=== PATIENT | male | born 1990 | race Caucasian/White ===

== ENCOUNTER 2017-02-15 11:46 | Emergency (ER) | payer SELFPAY ==
[~2017-02-15] VITALS: Ht 177.8 cm; Wt 67.6 kg
[2017-02-15 13:09] LABS: Basophils # (auto) 0 uL; CONDITION Y; Eosinophils # (auto) 0.1 uL; Eosinophils % (auto) 1.7 % (0.0-7.0); Hematocrit 41.6 % (41.0-53.0); Hemoglobin 14.3 g/dL (13.5-17.5); Lymphocytes # (auto) 2.5 uL; Lymphocytes % (auto) 28.5 % (10.0-50.0); Mean Corpuscular Hemoglobin 29.6 pg (28.0-32.0); Mean Corpuscular Hgb Conc. 34.3 g/dL (32.0-36.0); Mean Corpuscular Volume 86.5 fL (80.0-100.0); Mean Platelet Volume 7.7 fL (7.4-10.4); Monocytes % (auto) 11.5 % (0.0-12.0); Neutrophils % (auto) 58.3 % (37.0-80.0); Platelet Count (auto) 309 10^3/uL (140-450); Red Cell Distribution Width 12.9 % (11.6-16.0); White Blood Cell 8.7 10^3/uL (4.4-10.8)
[2017-02-15 13:40] LABS: Albumin 4.1 g/dL (3.4-5.0); BUN/Creatinine Ratio 16.1; Bilirubin, Total 1.5 mg/dL (0.2-1.0); Calcium 9.2 mg/dL (8.5-10.1); Potassium 3.7 mmol/L (3.5-5.1); Total Protein 8.5 g/dL (6.4-8.2)
[2017-02-15 14:57] VITALS: BP 123/75
== END 2017-02-15 15:00 | disposition home or self-care (01) ==
LOC: ER 11:46
DX: L03.114 Cellulitis of left upper limb (principal); F17.210 Nicotine dependence, cigarettes, uncomplicated; F12.10 Cannabis abuse, uncomplicated; F11.10 Opioid abuse, uncomplicated
CPT/HCPCS: 36415; 80053; 85025; 87040

== ENCOUNTER 2020-03-10 19:47 | Emergency (ER) | payer OTHER ==
[~2020-03-10] VITALS: Ht 177.8 cm; Wt 70.3 kg
[2020-03-10 22:32] LABS: Urine Bacteria MANY /hpf (None Seen); Urine Blood Negative /uL (Negative); Urine Mucus MODERATE (None Seen); Urine Specific Gravity 1.029 (1.001-1.035); Urine WBC 44 /hpf (0 - 3)
[2020-03-10 22:44] LABS: Alcohol, Urine < 3.0 mg/dL (0-10); Amphetamine Screen, Urine POSITIVE (NEGATIVE); Barbiturate Scree,Urine NEGATIVE (NEGATIVE); Benzodiazephine Screen, Urine NEGATIVE (NEGATIVE); Cannabinoid Screen, Urine NEGATIVE (NEGATIVE); Cocaine Screen, Urine NEGATIVE (NEGATIVE); Opiate Scree,Urine POSITIVE (NEGATIVE); Phencyclidine Screen, Urine POSITIVE (NEGATIVE)
[2020-03-10 23:17] LABS: Basophils # (auto) 0 10 ^3/uL (0-0.2); Basophils % (auto) 0.6 % (0.0-2.0); Eosinophils # (auto) 0.2 10 ^3/uL (0-0.8); Eosinophils % (auto) 2.4 % (0.0-7.0); Hematocrit 42.2 % (41.0-53.0); Hemoglobin 13.8 g/dL (13.5-17.5); Lymphocytes # (auto) 2.1 10 ^3/uL (0.4-5.4); Lymphocytes % (auto) 27.8 % (10.0-50.0); Mean Corpuscular Hemoglobin 28.4 pg (28.0-32.0); Mean Corpuscular Hgb Conc. 32.7 g/dL (32.0-36.0); Mean Corpuscular Volume 86.9 fL (80.0-100.0); Monocytes # (auto) 0.8 10 ^3/uL (0-1.3); Monocytes % (auto) 10.2 % (0.0-12.0); Neutrophils # (auto) 4.4 10 ^3/uL (1.6-8.6); Nucleated Red Blood Cells % 0.1 %; Platelet Count (auto) 230 10^3/uL (140-450); Red Blood Cells 4.86 10^6/uL (4.5-5.90); Red Cell Distribution Width 14.1 % (11.8-14.3); White Blood Cell 7.4 10^3/uL (4.4-10.8)
[2020-03-10 23:37] LABS: Albumin 3.5 g/dL (3.4-5.0); BUN/Creatinine Ratio 11.9; Calcium 8.9 mg/dL (8.5-10.1); Potassium 4.1 mmol/L (3.5-5.1)
[2020-03-10 23:40] LABS: Bilirubin, Total 0.6 mg/dL (0.2-1.0); Total Protein 8.1 g/dL (6.4-8.2)
[2020-03-10 23:49] VITALS: BP 121/77
[2020-03-11] MEDS ORDERED: AZITHROMYCIN 250 MG TAB PO ONE (01:15)
[2020-03-11] MEDS ORDERED: cefTRIAXone SOD 1,000 MG VL IM ONE (01:15)
[2020-03-11] MEDS ORDERED: LIDOCAINE 1% HCL (LOCAL ANESTH.) INJ 20ML MDV ID ONE (01:30)
== END 2020-03-11 01:46 | disposition home or self-care (01) ==
LOC: ER 19:47
DX: L03.011 Cellulitis of right finger (principal)
CPT/HCPCS: 36415; 73200; 80053; 80307; 81001; 83605; 85025; 87040; 96372; 99284; J0696; J2001

== ENCOUNTER 2020-09-25 09:53 | Emergency (ER) | payer OTHER ==
[~2020-09-25] VITALS: Ht 175.3 cm; Wt 70.3 kg
[2020-09-25 11:03] LABS: Urine Bacteria FEW /hpf (None Seen); Urine Blood Negative /uL (Negative); Urine Hyaline Cast FEW /lpf (0 - 2); Urine Mucus FEW (None Seen); Urine Specific Gravity 1.034 (1.001-1.035); Urine Sperm PRESENT /hpf (None Seen); Urine WBC 36 /hpf (0 - 3)
[2020-09-25 11:15] VITALS: BP 134/72
== END 2020-09-25 11:24 | disposition home or self-care (01) ==
LOC: ER 09:53
DX: N39.0 Urinary tract infection, site not specified (principal); F17.210 Nicotine dependence, cigarettes, uncomplicated; F12.10 Cannabis abuse, uncomplicated; F14.10 Cocaine abuse, uncomplicated
CPT/HCPCS: 81001

== ENCOUNTER 2021-06-10 03:36 | Emergency (ER) | payer OTHER ==
[~2021-06-10] VITALS: Ht 175.3 cm; Wt 72.6 kg
[2021-06-10] MEDS ORDERED: HYDROmorphone HCL 2 MG/ML VL IM ONE (03:45)
[2021-06-10 04:30] VITALS: BP 130/79
== END 2021-06-10 05:07 | disposition short-term general hospital (02) ==
LOC: ER 03:36
DX: T23.252A Burn of second degree of left palm, initial encounter (principal); F17.210 Nicotine dependence, cigarettes, uncomplicated; F12.10 Cannabis abuse, uncomplicated; T75.00XA Unspecified effects of lightning, initial encounter; X08.8XXA Exposure to other specified smoke, fire and flames, initial encounter; Y93.01 Activity, walking, marching and hiking; Y92.89 Other specified places as the place of occurrence of the external cause; Y99.8 Other external cause status
CPT/HCPCS: 16020; 96372; 99285; J1170

== ENCOUNTER 2021-10-21 09:07 | Emergency (ER) | payer OTHER ==
[~2021-10-21] VITALS: Ht 177.8 cm; Wt 72.6 kg
[2021-10-21 09:47] VITALS: BP 114/70
[2021-10-21 10:01] LABS: Urine Bacteria FEW /hpf (None Seen); Urine Blood 1+ /uL (Negative); Urine Mucus FEW (None Seen); Urine Specific Gravity 1.027 (1.001-1.035); Urine WBC 1303 /hpf (0 - 3)
[2021-10-21] MEDS ORDERED: PHENAZOPYRIDINE HCL 100 MG TAB PO ONE (10:15)
[2021-10-21] MEDS ORDERED: cefTRIAXone SOD 1,000 MG VL IM ONE (10:15)
[2021-10-21] MEDS ORDERED: DOXY-286 PO (10:21)
[2021-10-21] MEDS ORDERED: SULF400T11 PO (10:21)
== END 2021-10-21 10:32 | disposition home or self-care (01) ==
LOC: ER 09:07
DX: Z20.2 Contact with and (suspected) exposure to infections with a predominantly sexual mode of transmission (principal); N39.0 Urinary tract infection, site not specified; F17.210 Nicotine dependence, cigarettes, uncomplicated; Z79.2 Long term (current) use of antibiotics; Z79.899 Other long term (current) drug therapy
CPT/HCPCS: 81001; 96372; 99283; J0696